=== PATIENT | female | born 1995 | race Caucasian/White ===

== ENCOUNTER 2017-09-14 07:45 | Emergency (ER) | payer OTHER ==
[2017-09-14 07:54] VITALS: BP 135/71
--- NOTE | 2017-09-14 08:23 | UC ---
Skin Complaint HPI - HPI Summary HPI Summary: PT HAS HAD SEVERAL DAYS OF RED SPOTS ON HER ARMS. LAST NIGHT SHE NOTICED THE SPOTS WERE ALSO ON HER BACK, ABDOMEN, LEGS, FEET AND FACE. NOT VERY ITCHY. NOT PAINFUL. NO NEW EXPOSURES SHE IS AWARE OF. WAS AT WORK WHEN IT STARTED BUT NO CLEAR TRIGGER. OTHERWISE FEELS WELL. NO FEVER. SKIN LESIONS NOT DRAINAING OR TENDER. - History of Current Complaint Chief Complaint: UCRash Time Seen by Provider: 09/14/17 08:09 Stated Complaint: RASH Hx Obtained From: Patient Hx Last Menstrual Period: 09/07/17 Onset/Duration: Sudden Onset, Lasting Days, Still Present Timing: Constant Onset Severity: Moderate Current Severity: Moderate Pain Intensity: 0 Pain Scale Used: 0-10 Numeric Location: Diffuse Character: Hives, Redness Aggravating Factor(s): Nothing Alleviating Factor(s): Nothing Associated Signs & Symptoms: Positive: Rash - Allergy/Home Medications Allergies/Adverse Reactions: Allergies Allergy/AdvReac Type Severity Reaction Status Date / Time No Known Allergies Allergy Verified 09/14/17 07:51 Home Medications: Home Medications Unknown Allergy Med 09/14/17 [History] Review of Systems Constitutional: Negative Skin: Rash Respiratory: Negative Cardiovascular: Negative Gastrointestinal: Negative All Other Systems Reviewed And Are Negative: Yes PMH/Surg Hx/FS Hx/Imm Hx Previously Healthy: Yes - Surgical History Surgical History: None - Family History Known Family History: Positive: Diabetes - brother Negative: Hypertension - Social History Alcohol Use: Rare Substance Use Type: None Smoking Status (MU): Light Every Day Tobacco Smoker Type: Cigarettes Amount Used/How Often: 1/3 ppd When Did the Patient Quit Smoking/Using Tobacco: 2013 Household Exposure Type: Cigarettes - Immunization History Vaccination Up to Date: Yes Physical Exam Triage Information Reviewed: Yes Appearance: Well-Appearing, No Pain Distress, Well-Nourished Vital Signs: Initial Vital Signs Temp 97 F 09/14/17 07:52 Pulse 92 09/14/17 07:52 Resp 16 09/14/17 07:52 BP 135/71 09/14/17 07:52 Pulse Ox 100 09/14/17 07:52 Vital Signs Reviewed: Yes Eyes: Positive: Conjunctiva Clear ENT: Positive: Hearing grossly normal Neck: Positive: Supple Respiratory: Positive: No respiratory distress, No accessory muscle use Cardiovascular: Positive: Pulses Normal Abdomen Description: Positive: Soft Musculoskeletal: Positive: No Edema Neurological: Positive: Alert Psychological: Positive: Age Appropriate Behavior Skin: Positive: rashes - ERYTHEMATOUS RASH DIFFUSELY. LESIONS UP TO 2CM IN DIAMETER Course/Dx - Diagnoses Provider Diagnoses: DERMATITIS Discharge - Discharge Plan Condition: Stable Disposition: HOME Prescriptions: predniSONE TAB* [Deltasone TAB*] 50 mg PO DAILY #5 tab Patient Education Materials: Contact Dermatitis (ED), Urticaria (ED) Forms: *Work Release Referrals: David Starks MD [Primary Care Provider] - If Needed Additional Instructions: USE DAILY MOISTURIZING LOTION. OKAY TO USE OTC HYDROCORTISONE CREAM TOPICALLY 2- 3 TIMES PER DAY IF NEEDED TO CALM DOWN INFLAMMATION. AVOID HEAT AND HOT WATER TAKE OTC ANTIHISTAMINE DAILY (CLARITIN (LORATADINE), ZYRTEC (CETIRIZINE) OR SARA (FEXOFENADINE) IN THE MORNING) DO NOT SCRATCH KEEP COOL, CLEAN AND DRY SEE PCP OR DERMATOLOGY IF NOT IMPROVING DERMATOLOGY IN [place] Dr. Ligia Smalls. [phone] DR[address] RAY GUALLPA [facility] Dermatology [address] [place] [id number] LAYNE EDMONDS [facility], [facility] [address]; [address] [place] [address] [address] [place] Dr[address] Tita Villela DERMATOLOGY IN [place] DR. NEIL JAFFE [phone]
== END 2017-09-14 08:29 | disposition home or self-care (01) ==
LOC: UCEAST 07:45
DX: L30.9 Dermatitis, unspecified (principal); F17.210 Nicotine dependence, cigarettes, uncomplicated
CPT/HCPCS: 99212; G0463